=== PATIENT | male | born 1975 | race Caucasian/White ===

== ENCOUNTER 2018-04-05 01:31 | Emergency (ER) | payer BC ==
[~2018-04-05] VITALS: Ht 185.4 cm; Wt 95.3 kg
[2018-04-05 02:10] VITALS: BP 122/67
== END 2018-04-05 02:29 | disposition home or self-care (01) ==
LOC: ER 01:36
DX: H10.9 Unspecified conjunctivitis (principal); Z76.0 Encounter for issue of repeat prescription
CPT/HCPCS: A4649